=== PATIENT | male | born 1945 | race Caucasian/White ===

== ENCOUNTER → 2019-08-21 07:55 | Outpatient (CLI) | payer MEDICARE, SELFPAY ==
--- NOTE | 2019-08-21 | DI.ECHO.S_ITS ---
[place] +---------+ [facility] +---------+ : : [address] : : : : [id number] : : : : Phone: [phone]+ Echocardiogram Report + + :Name: ESEQUIEL GROSS Study Date: 08/21/2019 Height: 71 in : :[facility] Weight: 178 lb : : Gender: Male BSA: 2.0 m2 : :: 1945 Age: 74 yrs BP: 135/78 mmHg: :Reason For Study: DIZZINESS : : Performed By: [facility] Staff : :Referring: GABRIEL ARRIAGA L : + + Interpretation Summary Mild concentric left ventricular hypertrophy with ejection fraction 55-60%. Mildly dilated left atrium. The mechanical aortic valve is well seated. Procedure: A two-dimensional transthoracic echocardiogram with color flow and Doppler was performed. The study quality was technically adequate. There is no prior echocardiogram noted for this patient. The patient was in normal sinus rhythm during the exam. Left Ventricle: The left ventricle is normal in size. There is mild concentric left ventricular hypertrophy. The ejection fraction is estimated to be 55-60%. There are no focal wall motion abnormalities. Right Ventricle: The right ventricle is normal in size and function. Atria: The left atrium is mildly dilated. Right atrial size is normal. The interatrial septum is intact with no evidence for an atrial septal defect. Mitral Valve: The mitral valve is normal in structure and function. There is no mitral regurgitation noted. Aortic Valve: There is a mechanical aortic valve. The prosthetic aortic valve is well-seated. The prosthetic aortic valve appears to open well. The aortic valve mean gradient is 7 mmHg. No aortic regurgitation is present. Tricuspid Valve: The tricuspid valve is normal in structure and function. There is trace tricuspid regurgitation. Pulmonary artery pressures cannot be estimated because of the lack of a measurable TR jet velocity. Pulmonic Valve: The pulmonic valve is not well visualized. There is trace pulmonic regurgitation. Great Vessels: The aortic root is normal size. The dimensions of the ascending aorta are normal. The pulmonary artery is normal size. The IVC is of normal diameter and collapses greater than 50% with a sniff. This suggests a low right atrial pressure of 3 mm Hg. Pericardium/ Pleura There is no pericardial effusion. There is no pleural effusion. MMode/2D Measurements & Calculations LVIDd: 4.3 cm LVOT diam: 2.1 cm LVIDs: 3.0 cm Ao root diam: 3.2 cm FS: 31.1 % EPSS: 0.80 cm IVSd: 1.3 cm LVPWd: 1.2 cm LV young. diameter/BSA (cm/m^2): 2.1 LV sys. diameter/BSA (cm/m^2): 1.5 LA A2 area: 23.8 cm2 RA long axis: 5.6 cm LA A4 area: 17.1 cm2 RA area: 16.7 cm2 LA length (vol): 4.5 cm RA vol: 42.7 ml LA vol: 76.2 ml RA : 21.3 ml/m2 LA vol index: 38.0 ml/m2 TAPSE: 2.2 cm Doppler Measurements & Calculations Ao V2 max: 185.5 cm/sec LVOT Max Aaron: 90.0 cm/sec Ao V2 mean: 117.4 cm/sec LV V1 max P.2 mmHg Ao max P.8 mmHg LV V1 VTI: 22.4 cm Ao mean P.7 mmHg MARK(I,D): 1.9 cm2 Ao V2 VTI: 39.4 cm MARK(V,D): 1.7 cm2 sev ratio: 0.57 MARK indexed to BSA (cm^2/m^2): 0.96 MV E max araon: 83.5 cm/sec PA V2 max: 86.2 cm/sec MV A max aaron: 88.5 cm/sec PA V2 mean: 62.3 cm/sec MV E/A: 0.94 PA mean P.8 mmHg MV dec time: 0.20 sec PA Accel Time: 0.12 sec SV(LVOT): 76.0 ml Electronically signed by: Deejay Ybarra on Reading Physician:08/21/2019 05:28 PM
== END ==
PROVIDERS: Family Provider Family Medicine; PCP Family Medicine; Visit Provider Family Medicine
DX: R42 Dizziness and giddiness (principal); Z95.2 Presence of prosthetic heart valve
CPT/HCPCS: 93306

== ENCOUNTER 2024-07-18 13:58 | Emergency (ER) | payer MEDICARE, SELFPAY ==
[2024-07-18] VITALS (8 sets, daily range): BP systolic 135–181; BP diastolic 68–100; PULSE 61–82; RESP 18; TEMP 36.6; O2SAT 95–100; BMI 26.6
--- NOTE | 2024-07-18 14:14 | DI.CT.S_ITS ---
PROCEDURE: CT HEAD/BRAIN WO CON INDICATIONS: hit head/warfarin TECHNIQUE: Noncontrast 4.5 mm thick angled axial sections acquired from the foramen magnum to the vertex, with coronal and sagittal reformats. For radiation dose reduction, the following was used: automated exposure control, adjustment of mA and/or kV according to patient size. COMPARISON: None. FINDINGS: Image quality: Diagnostic. CSF spaces: Basal cisterns are patent. No extra-axial fluid collections. The ventricles are symmetric in size and shape. Brain: No intracranial bleeds or masses. There is cerebral volume loss for age, with resultant ventricular and sulcal prominence. There are periventricular and deep white matter chronic small vessel ischemic changes. There is intracranial internal carotid artery atherosclerosis. Skull and face: Calvarium and visualized facial bones appear intact, without suspicious lesions. Sinuses: Visualized sinuses and mastoids are clear. IMPRESSION: No acute intracranial pathology. Dictated by: Jim Abdalla M.D. on 07/18/2024 at 14:38 Approved by: Jim Abdalla M.D. on 07/18/2024 at 14:39
--- NOTE | 2024-07-18 14:14 | DI.CT.S_ITS ---
PROCEDURE: CT CERVICAL SPINE WO CON INDICATIONS: hit head/warfarin TECHNIQUE: Noncontrast 3 mm thick sections acquired from the skull base to the T4 level. Sagittal and coronal reformats were then constructed. For radiation dose reduction, the following was used: automated exposure control, adjustment of mA and/or kV according to patient size. COMPARISON: None. FINDINGS: Image quality: Excellent. Bones: No fractures or dislocations. Straightening of the normal cervical lordosis. Multilevel degenerative changes of the cervical spine. Decreased osseous mineralization. Visualized superior ribs are intact. Soft tissues: Prevertebral soft tissues are normal in thickness. No paravertebral hematomas. No apical pneumothoraces. 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 IMPRESSION: No displaced fracture or traumatic subluxation. 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 Multilevel degenerative changes of the cervical spine. Dictated by: Jim Abdalla M.D. on 07/18/2024 at 14:39 Approved by: Jim Abdalla M.D. on 07/18/2024 at 14:41
--- NOTE | 2024-07-18 15:29 | ED.FALL ---
HPI - Fall General Chief Complaint: Trauma Stated Complaint: fall x1dy, head injury, +warfarin Time Seen by Provider: 07/18/24 15:28 Source: patient Mode of arrival: Ambulatory Limitations: no limitations History of Present Illness HPI Narrative: 79-year-old male on warfarin with ground level fall. Patient states he was sleeping in his chair and fell forward while sleeping. Hitting his head in the back of his hands. He has a abrasions on his forehead and hands. Presents because does not have any complaints but is on warfarin due to be evaluated. States no other complaints no headache, no neck pain, no chest pain or shortness of breath no nausea or vomiting no numbness, tingling, weakness no difficulty with ambulation. Patient unsure of his tetanus status. Denies any drug allergies. Related Data Allergies Allergy/AdvReac Type Severity Reaction Status Date / Time No Known Drug Allergies Allergy Verified 07/18/24 14:14 Review of Systems Review of Systems ROS Unobtainable: All systems reviewed & are unremarkable except as noted in HPI and below Patient History Social History Smoking Status: Current every day smoker Smoking Status: Current every day smoker tobacco type: cigarettes alcohol intake frequency: other Substance Use Type: does not use Exam Narrative Exam Narrative: GEN: Patient appears in mild distress. HEAD: Patient has been a 1 x 3 cm abrasion on his right forehead, no raccoon/June sign. NECK: Nontender, painless range of motion, trachea midline Microphone Nexus criteria, no midline line tenderness, distracting injury, altered mental status, neuro deficit, recent EtOH. EYES: PERRLA, EOMI ENT: External inspection normal, trachea is midline, TM's are normal no hemotypanum, Nares are clear, no septal hematoma, no dental or oral injury, airway is normal and with normal occlusion, No bony tenderness RESP: Chest is nontender and has symmetric movement, no ecchymosis, breath sounds are normal no crackles, wheezes or rales CVS: Heart sounds are normal, no murmur noted, No JVD. ABG/GI: Nontender, soft, normal bowel sounds, no distention, no organomegaly NEURO: Oriented AOx3, neuro is grossly intact, sensation and motor is normal all 4 extremities moving, cranial nerves II through XII are intact, GCS is 15 PSYCH: Normal mood and affect SKIN: Abrasions dorsum of bilateral hands, warm and dry, no crepitus and without decubitus BACK: No CVA tenderness, no vertebral tenderness, no step-off's, no crepitus EXT: Atraumatic has not abrasion, hips are nontender, normal gait. Full range of motion. normal strength. Initial Vital Signs Initial Vital Signs: Vital Signs Pulse Rate 74 07/18/24 14:09 Pulse Oximetry 98 07/18/24 14:09 Course Orders Ordered: ED Orders 07/18/24 14:14 CT cervical spine wo con Stat CT head/brain wo con Stat 07/18/24 15:15 PT [Prothrombin Time INR] Stat Discontinued Medications Diphtheria/Tetanus/Acell Pertussis (Tet,Diph,Pertuss(Acell),Vac/Pf 0.5 Ml Syringe) 0.5 ml IM .ONCE ONE Stop: 07/18/24 15:33 Last Admin: 07/18/24 15:46 Dose: 0.5 ml Documented By: [facility] Vital Signs Vital signs: Vital Signs - 8 hr 07/18/24 14:09 07/18/24 14:11 07/18/24 14:33 Temperature 97.8 F Pulse Rate 74 82 79 Respiratory Rate 18 Blood Pressure 181/80 H Pulse Oximetry 98 98 100 Oxygen Delivery Method Room Air 07/18/24 14:34 07/18/24 14:34 07/18/24 15:00 Temperature Pulse Rate 80 Respiratory Rate Blood Pressure 149/77 H 135/68 Pulse Oximetry 99 Oxygen Delivery Method 07/18/24 15:00 07/18/24 15:30 07/18/24 16:00 Temperature Pulse Rate 61 76 67 Respiratory Rate Blood Pressure Pulse Oximetry 95 98 98 Oxygen Delivery Method 07/18/24 16:00 07/18/24 16:12 07/18/24 16:12 Temperature Pulse Rate 68 Respiratory Rate Blood Pressure 142/78 H 137/100 H Pulse Oximetry 99 Oxygen Delivery Method MDM - Fall Lab Data Labs: Lab Results 07/18/24 Range/Units 15:15 PT 30.6 H (9.4-12.5) SECONDS INR 2.7 H (0.9-1.3) MDM Narrative Medical decision making narrative: 79-year-old male with likely mechanical ground level fall where he fell forward while sleeping, has a abrasions on his hand and forehead but is anticoagulated on warfarin. Has no other complaints. He is unsure of his tetanus status. Head CT shows no acute change CT cervical spine no displaced fracture or traumatic subluxation dilated ascending thoracic aorta measuring 4.4 cm multi level degenerative changes of cervical spine. INR is 2.7 Patient has a abrasions on his hands and forehead. Tetanus was updated. Patient had bandages applied. Discussed findings with patient he states that he did have a valve and states he had some sort of graft or bypass likely to the aorta. This was with Dr. Lim through cardiology your [facility]. Asked for him to touch base with them to follow this up with his imaging and if he needs dedicated imaging or would be an expected finding. Patient expresses understanding. All questions answered. Discussed return precautions. Discharge Plan Departure Patient Disposition: Home Clinical Impression: Abrasion of forehead, Elevated INR, Abrasion hand, Fall Instructions: Closed Head Injury Activity Restrictions/Additional Instructions: Follow up as needed. Your INR today is 2.7 Wound Care: Keep wound(s) clean and dry. Wash daily with soap and water only. Do not use over the counter products (alcohol or peroxide)on the wounds unless instructed by a physician, you can use triple antibiotic ointment to the affected area as needed. If wound condition worsens (increased/expanding redness, developing fluid blisters, or worsening pain), either contact your doctor for an urgent re-assessment , or return to the Emergency Department. Your imaging incidentally found that your thoracic aorta is somewhat dilated at 4.4cm, please follow up with your physician for dedicated imaging to evaluate for aneurysm. Please return for severe headaches, confusion or altered mental status, new neck or back pain, nausea or vomiting, new numbness tingling or weakness, difficulty with ambulation, signs of infection at your abrasions or other new or concerning changes. Referrals: Jose Goodrich MD [Primary Care Provider] - Stand Alone Forms: Patient Portal/API/Survey
[2024-07-18] MEDS: TET,DIPH,PERTUSS(ACELL),VAC/PF 0.5 ML SYRINGE IM (15:46)
[2024-07-18 16:04] LABS: INR 2.7 (0.9-1.3); Prothrombin Time 30.6 SECONDS (9.4-12.5)
== END 2024-07-18 16:51 | disposition home or self-care (01) ==
PROVIDERS: Emergency Provider Emergency Medicine; Family Provider Family Medicine; PCP Family Medicine
DX: S00.81XA Abrasion of other part of head, initial encounter (principal); S60.512A Abrasion of left hand, initial encounter; S60.511A Abrasion of right hand, initial encounter; R79.1 Abnormal coagulation profile; S09.90XA Unspecified injury of head, initial encounter; W07.XXXA Fall from chair, initial encounter; Z79.01 Long term (current) use of anticoagulants; Z23 Encounter for immunization
CPT/HCPCS: 36415; 70450; 72125; 85610; 90471; 99284; 90715

== ENCOUNTER → 2024-08-04 15:35 | Outpatient (CLI) | payer MEDICARE, SELFPAY ==
--- NOTE | 2024-08-04 15:37 | DI.CT.S_ITS ---
PROCEDURE: CT LUNG LOW DOSE SCREENING INDICATIONS: ldls- nicotine dependence TECHNIQUE: Noncontrast 2.0-2.5 mm thick sections acquired from the pulmonary apices to the posterior costophrenic angles. 7 mm thick axial MIP, and 5 mm coronal and sagittal reformats were then acquired. For radiation dose reduction, the following was used: automated exposure control, adjustment of mA and/or kV according to patient size. COMPARISON: None. FINDINGS: Image quality: Diagnostic allowing for low radiation dose Lungs and pleura: No dense airspace disease. No pleural effusions. 7 x 6 millimeter left lower lobe pulmonary nodule (3/238). Other smaller nodules are also seen. Mediastinum, heart, and esophagus: Coronary, annular, and atherosclerotic calcifications. Dilated ascending aorta at about 4.6 centimeters. No pathologic lymph nodes by size criteria Chest wall and thyroid: Unremarkable Upper abdomen: No gross abnormality on these low-dose images Bones: There are degenerative changes. Sternotomy wires. IMPRESSION: 6 x 7 millimeter left lower lobe pulmonary nodule (3/238). Other smaller nodules also seen. LUNG-RADS 3; six-month low-dose chest CT is recommended. Dilated ascending aorta at about 4.6 centimeters. Coronary disease. Dictated by: Marco Charles M.D. on 08/04/2024 at 16:30 Approved by: Marco Charles M.D. on 08/04/2024 at 16:33
== END ==
PROVIDERS: Family Provider Family Medicine; PCP Family Medicine; Referring Provider Family Medicine; Visit Provider Family Medicine
DX: R91.1 Solitary pulmonary nodule (principal); I77.810 Thoracic aortic ectasia; I25.10 Atherosclerotic heart disease of native coronary artery without angina pectoris; R05.9 Cough, unspecified; F17.210 Nicotine dependence, cigarettes, uncomplicated
CPT/HCPCS: 71271

== ENCOUNTER → 2024-12-08 15:05 | Outpatient (CLI) | payer MEDICARE, SELFPAY ==
--- NOTE | 2024-12-08 15:15 | DI.RAD.S_ITS ---
PROCEDURE: XR LUMBAR SPINE 2-3V INDICATIONS: SCIATICA TECHNIQUE: 3 views of the lumbar spine were acquired. COMPARISON: None. FINDINGS: Bones: 5 [id number] vertebrae are present. Moderate disc height loss at the L3-4 through L5-S1 levels with adjacent endplate sclerosis and anterior osteophytosis. There is normal bony alignment. No vertebral body compression fractures. No suspicious bony lesions. Soft tissues: Overlying bowel gas pattern is normal. No suspicious soft tissue calcifications. Atherosclerotic vascular calcifications are noted. IMPRESSION: Mild degenerative change of the lumbar spine without evidence of acute osseous abnormality. Dictated by: Martin Perez M.D. on 12/09/2024 at 7:02 Approved by: Martin Perez M.D. on 12/09/2024 at 7:03
== END ==
PROVIDERS: Family Provider Family Medicine; PCP Family Medicine; Referring Provider Family Medicine; Visit Provider Family Medicine
DX: M54.9 Dorsalgia, unspecified (principal); M54.32 Sciatica, left side; I70.90 Unspecified atherosclerosis
CPT/HCPCS: 72100

== ENCOUNTER → 2025-01-26 15:51 | Outpatient (CLI) | payer MEDICARE, SELFPAY ==
--- NOTE | 2025-01-26 15:54 | DI.CT.S_ITS ---
PROCEDURE: CT CHEST WO CON INDICATIONS: NICOTINE DEPENDENCE TECHNIQUE: Noncontrast 2.0-2.5 mm thick sections acquired from the pulmonary apices to the posterior costophrenic angles. 7 mm thick axial MIP, and 5 mm coronal and sagittal reformats were then acquired. For radiation dose reduction, the following was used: automated exposure control, adjustment of mA and/or kV according to patient size. COMPARISON: [facility], CT, CT LUNG LOW DOSE SCREENING, 08/04/2024, 15:45. FINDINGS: Image quality: Diagnostic. Lower Neck: No enlarged lymph nodes. Thyroid: No thyroid nodules which require sonographic follow up, per consensus guidelines. Axillae: No enlarged lymph nodes. Chest Wall: Sternotomy wires, apparent aortic valve replacement.. Bones: Unremarkable. Lungs and Pleura: No pneumothorax or pleural effusions. No consolidation and a previously identified 6 x 7 mm nodule at the lateral left lower lobe has not changed in size, currently measured at 6 x 6 mm and best seen centered on series 3, image 243. . Heart: Heart size is normal. No pericardial effusion. Thoracic Vessels: The aorta and pulmonary arteries demonstrate normal size. Mediastinum and Qing: No enlarged lymph nodes. Esophagus: No wall thickening. No hiatal hernia. Upper Abdomen: Visualized upper abdomen solid organs and bowel loops appear normal. IMPRESSION: Stable appearance of a 6 mm lateral left lower lobe pulmonary nodule from 6 months ago. LUNG-RADS category 2; continued annual screening, if eligible. Clinically Significant Non-pulmonary Findings: Postsurgical changes of sternotomy and aortic valve replacement. Relatively prominent coronary artery calcifications. Dictated by: Jeremy Gonsalez M.D. on 01/26/2025 at 16:47 Approved by: Jeremy Gonsalez M.D. on 01/26/2025 at 16:53
== END ==
PROVIDERS: Family Provider Family Medicine; PCP Family Medicine; Referring Provider Family Medicine; Visit Provider Family Medicine
DX: R91.1 Solitary pulmonary nodule (principal); F17.210 Nicotine dependence, cigarettes, uncomplicated; I25.10 Atherosclerotic heart disease of native coronary artery without angina pectoris; Z95.2 Presence of prosthetic heart valve
CPT/HCPCS: 71250

== ENCOUNTER → 2025-08-23 08:01 | Outpatient (CLI) | payer MEDICARE, SELFPAY ==
--- NOTE | 2025-08-23 08:02 | DI.US.S_ITS ---
PROCEDURE: US CAROTID DOPPLER BI INDICATIONS: Occlusion and stenosis of left carotid artery TECHNIQUE: Color and pulse Doppler interrogation was performed of both carotid systems, with image documentation and velocity measurements. COMPARISON: None. FINDINGS: Stenosis calculations are based on SRU (Society of Radiologists in Ultrasound) criteria. Right side: Common carotid artery peak systolic velocity: 53 cm/sec. Internal carotid artery peak systolic velocity: 93 cm/sec. Internal carotid artery end diastolic velocity: 39 cm/sec. External carotid artery peak systolic velocity: 55 cm/sec. ICA/CCA peak systolic ratio: 1.8 . Salvador scale imaging description: atherosclerotic plaques Percent internal carotid artery stenosis: Less than 50% . Vertebral artery: Flow direction is antegrade. Left side: Common carotid artery peak systolic velocity: 62 cm/sec. Internal carotid artery peak systolic velocity: 75 cm/sec. Internal carotid artery end diastolic velocity: 32 cm/sec. External carotid artery peak systolic velocity: 102 cm/sec. ICA/CCA peak systolic ratio: 1.2 . Salvador scale imaging description: Atherosclerotic plaques Percent internal carotid artery stenosis: Less than 50% . Vertebral artery: Flow direction is antegrade. IMPRESSION: 1. In the right carotid artery, there is less than 50% stenosis based on peak systolic velocity criteria. 2. In the left carotid artery, there is less than 50% stenosis based on peak systolic velocity criteria. 3. Antegrade vertebral arteries. 4. Dense calcifications are seen at the carotid bulbs and degree of stenosis may be underestimated at these areas. Dictated by: Jim Abdalla M.D. on 08/23/2025 at 15:58 Approved by: Jim Abdalla M.D. on 08/23/2025 at 16:00
== END ==
PROVIDERS: Family Provider Family Medicine; PCP Family Medicine; Referring Provider Family Medicine; Visit Provider Family Medicine
DX: I65.23 Occlusion and stenosis of bilateral carotid arteries (principal)
CPT/HCPCS: 93880